=== PATIENT | male | born 1975 | race Caucasian/White ===

== ENCOUNTER 2017-06-24 21:14 | Inpatient (IN) | payer OTHER ==
[~2017-06-24] VITALS: Ht 172.7 cm; Wt 75.5 kg
--- NOTE | 2017-06-24 21:15 | NUR ---
NARCAN 2MG GIVEN IVP TO THE LEFT HAND G18 ORDERED [address] BEAN,
--- NOTE | 2017-06-24 21:15 | NUR ---
TO BED 1 A 41 YO MALE PT BIBA#102 PT PER EMS DID LIQUID ECTASY AND HEROINE PERIOR TO ARRIVAL, EMSGAVE 2MG OF NARCAN AND 4MG OF ZOFRAN PRACTICE REPRESENTATIVE. UPON ARRIVA, PATIENT IS UNRESPONSIVE, HYPOVENTILATING, ONGOING BVG MASK BY PARAMEDICS. PLACED ON CARDIAC AND VS MONITOR. MAINTAINED PATENT AIRWAY. DR BEAN AT BEDSIDE TO EVALUATE PATIENT. RT AT BEDSIDE WELL.
--- NOTE | 2017-06-24 21:36 | NUR ---
ETOMIDATE 20MG IVP AND SUCCS 100MG IVP GIVEN AT THIS TIME PRIOR TO INTUBATION. DR ROMI RICHARDSON AT BEDSIDE TO INTUBATE PATIENT.
--- NOTE | 2017-06-24 21:39 | NUR ---
SIZE 8 ETT PLACED WITH LIP AT [address] ROMI RICHARDSON, COLOR CHANGE NOTED ON THE CAPNO, WEI LUNG SOUNDS HEARD. PATIENT THEN CONNECTED TO [facility] VENT WITH SETTING FOLLOWS: AC 20, TV 500, FIO2 100%, PEEP OF 5. PATIENT IS SATTING AT 100% AT THIS TIME. WILL CONTINUE TO MONITOR.
[2017-06-24] MEDS ORDERED: PROPOFOL 100 ML IV ONE ×2 (21:48→23:40)
--- NOTE | 2017-06-24 21:55 | NUR ---
ICU 253
[2017-06-24] MEDS ORDERED: NALOXONE PREFILLED SYRINGE 2 MG/2 ML SYRINGE IV ONE (22:00)
[2017-06-24] MEDS ORDERED: IV NS 0.9% 1,000 ML BAG IV ONE (22:00)
--- NOTE | 2017-06-24 22:02 | NUR ---
PT ARRIVED POSSIBLE OD, WAS INTUBATED WITH Lei RICHARDSON AT BEDSIDE WITH 8.0 ETT @ 26LIPLINE BILATERAL BREATH SOUNDS PRESENT, GOOD COLOR CHANGE ON CAP, PT PLACED ON FOLLOWING SETTING ON [facility] VENT AC 12 500 100% ++5, VENT PLUGGED INTO RED OUTLET, VENT ALARMS ARE SET AND BVM AT BEDSIDE, SCANT AMOUNT OF SECRETIONS SUCTIONED PENDING XRAY FOR PLACEMENT AND ABG TO FOLLOW Addendum: 06/24/17 at 2208 by ALANA OSORIO RT Amended: Links added.
--- NOTE | 2017-06-24 22:07 | NUR ---
CXR AT BEDSIDE.
[2017-06-24 22:23] LABS: BASOPHILS # (AUTO) 0.1 /CMM (0.0-0.2); BASOPHILS % (AUTO) 0.6 % (0.0-2.0); EOSINOPHILS # (AUTO) 0.1 /CMM (0.0-0.7); EOSINOPHILS % (AUTO) 0.6 % (0.0-6.0); HEMATOCRIT 46 % (39-51); HEMOGLOBIN 15.5 g/dL (13.5-17.5); LYMPHOCYTES # (AUTO) 1.6 /CMM (0.8-4.8); LYMPHOCYTES % (AUTO) 15.7 % (20.0-44.0); MEAN CORPUSCULAR HEMOGLOBIN 28 PG (26.0-33.0); MEAN CORPUSCULAR HGB CONC 34 g/dl (31.0-36.0); MEAN CORPUSCULAR VOLUME 83 fL (80-96); MONOCYTES # (AUTO) 0.6 /CMM (0.1-1.30); MONOCYTES % (AUTO) 5.8 % (2.0-12.0); NEUTROPHILS # (AUTO) 7.9 /CMM (1.8-8.9); NEUTROPHILS % (AUTO) 77.3 % (43.0-81.0); PLATELET COUNT (AUTO) 263 /CMM (150-450); RED BLOOD CELL COUNT(AUTO) 5.57 MIL/uL (4.5-6.0); WHITE BLOOD COUNT (AUTO) 10.2 K/uL (4.3-11.0)
[2017-06-24 22:25] LABS: APPEARANCE,URINE SL CLOUDY (CLEAR); BILIRUBIN,URINE NEGATIVE (NEGATIVE); BLOOD, URINE TRACE-INTA Ery/uL (NEGATIVE); COLOR,URINE YELLOW (YELLOW); KETONES,URINE TRACE (NEGATIVE); LEUKOCYTE ESTERASE ,URINE NEGATIVE (NEGATIVE); NITRITE, URINE NEGATIVE (NEGATIVE); PH,URINE 7.5 (5.0-8.0); PROTEIN,URINE NEGATIVE (NEGATIVE); UGLUCOSE NEGATIVE (NEGATIVE)
--- NOTE | 2017-06-24 22:30 | NUR ---
OG TUBE INSERTED AT 75 CM ON THE LIP. IN PLACE VIA AUSCULTATION; GURGLING SOUND NOTED. SUCTIONED WITH YELLOWISH SECRETIONS.
[2017-06-24 22:34] LABS: BACTERIA,URINE None seen /HPF (None Seen); RBC,URINE 0-2 /HPF (0-2); SQUAMOUS EPITHELIAL CELL,UR Few /HPF (None Seen); WBC,URINE 0-2 /HPF (0-3)
--- NOTE | 2017-06-24 22:37 | NUR ---
Report given to Suzi MAGAÑA for ICU adission and ubaldo.
[2017-06-24 22:40] LABS: ALANINE AMINOTRANSFERASE 20 U/L (12-78); ALBUMIN 3.5 g/dL (3.4-5.0); ALCOHOL, BLOOD < 3 mg/dL (0-0); ALKALINE PHOSPHATASE 88 U/L (46-116); ASPARTATE AMINOTRANSFERASE 15 U/L (15-37); BILIRUBIN,DIRECT 0.1 mg/dL (0.0-0.2); BILIRUBIN,TOTAL 0.4 mg/dL (0.2-1.0); CARBON DIOXIDE 28 mmol/L (21-32); CHLORIDE 99 mmol/L (98-107); CREATININE 1.3 mg/dL (0.6-1.3); GLUCOSE 126 mg/dL (74-106); POTASSIUM 3.5 mmol/L (3.5-5.1); SODIUM SERUM 137 mmol/L (136-145); TOTAL PROTEIN, SERUM 7.3 g/dL (6.4-8.2); UREA NITROGEN, BLOOD 11 mg/dL (7-18)
[2017-06-24 22:41] LABS: ACETAMINOPHEN 0 ug/ml (10-30); SALICYLATE 0.6 mg/dL (2.8-20.0)
[2017-06-24] MEDS ORDERED: Z GUARD REMEDY 2 OZ OINT TP PRN (23:00)
[2017-06-24] MEDS ORDERED: ONDANSETRON HCL/PF 4 MG/2 ML VIAL IVP PRN (23:00)
[2017-06-24] MEDS ORDERED: IV NS 0.9% 1,000 ML IV SCH (23:00)
[2017-06-24] MEDS ORDERED: PROPOFOL 100 ML IV PRN (23:00)
--- NOTE | 2017-06-24 23:20 | NUR ---
Transferred patient to ICU via als protocol, no incident noted.
--- NOTE | 2017-06-24 23:25 | NUR ---
BLUEPRINT ENGINEER: ADMITTED PT ON S/P INTUBATION PERFORMED IN ER D/T RESPIRATORY FAILURE FROM DRUG OVERDOSE (POSITIVE FOR OPIATES AND CANNABINOIDS). TOLERATING VENT SETTINGS ORDERED. CURRENTLY INFUSING 2ND BAG OF NS BOLUS AND DIPRIVAN DRIP AT 35MCG/KG/MIN WT AGITATION. WILL TITRATE DIPRIVAN NEEDED TO ATTAIN PROPER SEDATION. SR ON SNORKELLING INSTRUCTOR. AFEBRILE. OGT VERIFIED PLACEMENT WT CHARGE NURSE LOS. F/C PATENT AND INTACT DRAINING YELLOW COLORED URINE TO GRAVITY. HOB ELEVATED AT 35 DEGREES. SAFETY PRECAUTION NOTED.
[2017-06-24 23:26] VITALS: BP 139/105
[2017-06-24 23:30] VITALS: BP 129/92
[2017-06-24 23:48] VITALS: BP 129/92
[2017-06-24 23:49] LABS: ABG BASE EXCESS 2.2 mmol/L; ABG OXYGEN SATURATION 99.1 % (92.0-98.5); ABG PCO2 37.6 mmHg (35.0-45.0); ABG PH 7.456 (7.350-7.450); ABG PO2 447.8 mmHg (75.0-100.0); AaDO2 227.6 mmHg; COHb 0.1 % (0.5-1.5); PEEP,BG 5 cm H2O; SITE, ABG Right Radial; VT, ABG 500 mL
[2017-06-25] VITALS (50 sets, daily range): BP systolic 91–142; BP diastolic 45–99
--- NOTE | 2017-06-25 | NUR ---
MINOR LEAGUE BASEBALL PLAYER: MOTHER AT BEDSIDE, UPDATED PT's CONDITION AND PROVIDED PT INFO FOR ADMISSION PROCESS.
[2017-06-25] MEDS ORDERED: NALOXONE PREFILLED SYRINGE 2 MG/2 ML SYRINGE ONE (00:05)
[2017-06-25] MEDS: PROPOFOL 100 ML IV PRN ×10 (00:12→22:32)
--- NOTE | 2017-06-25 00:30 | NUR ---
HANDKERCHIEF MAKER: OBTAINED TEL. ORDER FROM DR. ROMI RICHARDSON FOR BILAT. SOFT WRIST RESTRAINTS TO PREVENT SELF EXTUBATION. PT CONTINUES TO BE AGITATED M/B TRYING TO PULL TUBINGS DESPITE BEING ON DIPRIVAN DRIP. CIRCULATION WNL WT NO NEW SKIN BREAKDOWN. WILL CONTINUE TO MONITOR.
--- NOTE | 2017-06-25 01:45 | NUR ---
AUTO PARTS CLERK: CALLED AND NOTIFIED DR. RICHARDSON THAT PT. HAD EPISODE OF MODERATE AMT. OF ORANGE COLORED EMESIS AND AFTER 10 MINUTES HAD A 2-MINUTE EPISODE OF GRAND-MAL SEIZURE WITNESSED BY CHARGE AND PRIMARY NURSES. DNP WT NEW ORDERS. NOTED AND CARRIED OUT.
[2017-06-25] MEDS ORDERED: LORAZEPAM INJ 2 MG/ML VIAL ONE (01:50)
[2017-06-25] MEDS ORDERED: LORAZEPAM INJ 2 MG/ML VIAL IV ONE (02:00)
[2017-06-25] MEDS ORDERED: LORAZEPAM INJ 2 MG/ML VIAL IV PRN (02:00)
[2017-06-25] MEDS ORDERED: PROPOFOL 100 ML IV ONE ×2 (03:10→05:24)
[2017-06-25 05:03] LABS: MAGNESIUM 2.1 mg/dL (1.8-2.4); PHOSPHORUS 3.9 mg/dL (2.5-4.9)
--- NOTE | 2017-06-25 06:55 | NUR ---
DRYLAND FARMER: SEDATED ON DIPRIVAN AT 90MCG/KG/MIN. REMAINED NSR ON AUTOMATED CUTTING MACHINE OPERATOR WT HR IN THE 80s. TOLERATING VENT SETTINGS ORDERED WT NO ACUTE DISTRESS. NO EVIDENCE OF DISCOMFORT. NO MORE SEIZURE NOTED. SAFETY AND SEIZURE PRECAUTIONS NOTED AT ALL TIMES.
--- NOTE | 2017-06-25 07:00 | NUR ---
PT RECEIVED IN ICU ORALLY INTUBATED ON MECHANICAL VENT W/ SETTING PER MD. VENT IN RED OUTLET, AMBUBAG AT BEDSIDE, VENT ALARMS CHECKED AND AUDIBLE. PT SX'ED AND LAVAGED PRN TO MOD AMOUNTS OF THICK CHACKO/BLOOD TINGED SECRETIONS. BREATH SOUNDS EQUAL, CLEAR/DIMINISHED, ETT CLEAN AND SECURE. PLAN IS TO CONTINUE CARE W/ CURRENT MD ORDERS AND MONITOR FOR CHANGES. Addendum: 06/25/17 at 0809 by CARSON LOOMIS RT Amended: Links added.
--- NOTE | 2017-06-25 07:45 | NUR ---
AGRICULTURAL PRODUCTION ENGINEER; ASSESSMENT RECEIVED PT VENTED VIA ETT, SEE FLOW SHEET FOR VENT SETTINGS. PT SEDATED ON DIPRIVAN DRIP CURRENTLY AT 90MCG/KG/MIN, BUT AGITATED DIPRIVAN INCREASED TO 100MCG ORDERED. WEI WRIST RESTRAINS SECURED FOR PT SAFETY. OG TUBE IN PLACE POSITIVE FOR AUSCULTATION AND ASPIRATION, ON LOW INT. SUCTION. LEWIS CATH INTACT DRAINING TO GRAVITY CLEAR YELLOW URINE. WILL CONTINUE WITH POC.
--- NOTE | 2017-06-25 10:47 | NUR ---
HOTEL SERVER; PULMONARY/ SEDATION VACATION DR. MCINTOSH AT BEDSIDE UPDATE WAS GIVEN. DIPRIVAN NOW DOWN TO 50MCG/KG/MIN PT IS AWAKE LETHARGIC, WITH DELAYED IN FOLLOWING COMMANDS. PER DR. MCINTOSH TO INCREASE SEDATION AND WILL GIVEN ORDERS TO START WEANING FOR TOMORROW. PTS MOTHER AT BEDSIDE UPDATE GIVEN REGARDING POC
[2017-06-25] MEDS ORDERED: ETOMIDATE 2 MG/ML VIAL IV ONE (11:29)
[2017-06-25] MEDS ORDERED: SUCCINYLCHOLINE CHLORIDE 20 MG/ML VIAL IV ONE (11:29)
[2017-06-25] MEDS: IV NS 0.9% 1,000 ML IV PRN ×2 (12:16→20:18)
[2017-06-25] MEDS: ENOXAPARIN SODIUM 40 MG/0.4 ML DISP.SYRIN SQ SCH (13:33)
--- NOTE | 2017-06-25 20:00 | NUR ---
BLUEPRINT TRACER - NOTES - RECEIVED PT VENTED VIA ETT, SEE FLOW SHEET FOR VENT SETTINGS. PT SEDATED ON DIPRIVAN DRIP CURRENTLY AT 80MCG/KG/MIN. WEI WRIST RESTRAINTS SECURED FOR PT SAFETY. OG TUBE IN PLACE POSITIVE FOR AUSCULTATION AND ASPIRATION, ON LOW INT. SUCTION. LEWIS CATH INTACT DRAINING TO GRAVITY DARK GREEN URINE. WILL CONTINUE WITH POC.
--- NOTE | 2017-06-25 23:00 | NUR ---
PT AGITATED, TRYING TO GET UP AND PULL OUT ETT, PROPOFOL DRIP INCREASED TO 90 MCG/KG/MIN, WILL CONTINUE TO MONITOR
[2017-06-26] VITALS (37 sets, daily range): BP systolic 98–147; BP diastolic 39–99
[2017-06-26] MEDS: PROPOFOL 100 ML IV PRN ×3 (01:28→05:31)
--- NOTE | 2017-06-26 04:00 | NUR ---
FULL BED BATH GIVEN, ALL LINENS CHANGED, NO BM, PT STILL WITH DARK GREEN URINE IN F/C. VSS. WILL CONTINUE TO MONITOR
[2017-06-26] MEDS: IV NS 0.9% 1,000 ML IV PRN ×4 (04:27→20:22)
[2017-06-26 04:57] LABS: BASOPHILS % (AUTO) 0.3 % (0.0-2.0); EOSINOPHILS # (AUTO) 0.1 /CMM (0.0-0.7); EOSINOPHILS % (AUTO) 0.7 % (0.0-6.0); HEMATOCRIT 41 % (39-51); HEMOGLOBIN 13.7 g/dL (13.5-17.5); LYMPHOCYTES # (AUTO) 1.9 /CMM (0.8-4.8); LYMPHOCYTES % (AUTO) 13.3 % (20.0-44.0); MEAN CORPUSCULAR HEMOGLOBIN 28 PG (26.0-33.0); MEAN CORPUSCULAR HGB CONC 33 g/dl (31.0-36.0); MEAN CORPUSCULAR VOLUME 84 fL (80-96); MONOCYTES # (AUTO) 1.1 /CMM (0.1-1.30); MONOCYTES % (AUTO) 7.7 % (2.0-12.0); PLATELET COUNT (AUTO) 203 /CMM (150-450); RDW COEFFICIENT OF VARIATION 13.3 (11.5-15.0); RED BLOOD CELL COUNT(AUTO) 4.89 MIL/uL (4.5-6.0); WHITE BLOOD COUNT (AUTO) 14.1 K/uL (4.3-11.0)
[2017-06-26 05:16] LABS: CALCIUM, SERUM 8.3 mg/dL (8.5-10.1); CREATININE 1.1 mg/dL (0.6-1.3); MAGNESIUM 2.1 mg/dL (1.8-2.4); PHOSPHORUS 4.8 mg/dL (2.5-4.9); POTASSIUM 3.6 mmol/L (3.5-5.1)
--- NOTE | 2017-06-26 07:15 | NUR ---
ICU INITIAL NOTE RECEIVED REPORT FROM REE, PT WAS RECEIVED IN BED, SEDATED, SATING WELL, PT IS INTUBATED ETT 8.0, 26 @LIPLINE, AC 12 TV 500 FIO2 40% PEEP 5, NO S/S OF RESP. DISTRESS OR SOB NOTED AT THIS TIME, PT IS ON BEDSIDE MONITOR SHOWING SR @80'S, NO C/O OF CHEST PAIN OR DISCOMFORT NOTED AT THIS TIME, PT HAS R HAND #20G, L HAND #18G, RUNNING DIPRIVAN @ 90MCG/MIN, NS @125ML/HR, C/D/I/PATENT, FLUSHING WELL, NO S/S OF INFECTION/ INFILTRATION NOTED AT THIS TIME, PT IS CURRENTLY NPO AT THIS TIME, PT HAS OGT, ATTACHED TO LIS, DRAINING GREEN LIQUID, PT HAS F/C DRAINING GREEN TINT URINE TO GRAVITY, ALL SAFETY MEASURES IN PLACE AT ALL TIMES, CALL LIGHT WITHIN EASY REACH, WILL MONITOR PT CLOSELY FOR CHANGES
--- NOTE | 2017-06-26 07:15 | NUR ---
SEDATION VACATION DIPRIVAN IS BEING TITRATED DOWN PER PROTOCOL, PT IS ABLE TO FOLLOW COMMANDS, ABLE TO MOVE ALL EXTREMITIES, ABLE TO TRACK, PT IS CURRENTLY BEING WEANED AT THIS TIME, BILATERAL WRIST RESTRAINTS ARE STILL IN PLACE, MOTHER IS AT BEDSIDE, DR. MCINTOSH NOTIFIED OF ABG'S RESULTS AND PTS MENTAL STATE. DIPRIVAN WILL REMAIN OFF, PT IS CALM, O2 SATING 100%, WILL MONITOR CLOSELY
[2017-06-26 08:33] LABS: ABG BASE EXCESS -0.3 mmol/L; ABG OXYGEN SATURATION 98.2 % (92.0-98.5); ABG PCO2 35.7 mmHg (35.0-45.0); ABG PH 7.435 (7.350-7.450); ABG PO2 144.6 mmHg (75.0-100.0); AaDO2 99.5 mmHg; COHb 0.3 % (0.5-1.5); O2Hb 96.9 % (94.0-97.0); SITE, ABG Right Radial
[2017-06-26] MEDS ORDERED: DC PROPOFOL WHEN EXTUBATED XX PRN (09:00)
--- NOTE | 2017-06-26 09:00 | NUR ---
ICU NOTE DR. MCINTOSH MADE ROUNDS, OKAY TO EXTUBATE PT. ORDERS PUT IN AND ACK. DORY D/C
--- NOTE | 2017-06-26 09:14 | NUR ---
RT PER DR CATHERINE ORDER PATIENT WEANED AND EXTUBATED PARKER WELL. PATIENT AWAKE ALERT AND RESPONDING TO VERBAL COMMANDS
--- NOTE | 2017-06-26 09:15 | NUR ---
ICU NOTE PT WAS EXTUBATED, PT IS ABLE TO SWALLOW, PT IS ABLE TO TALK AND MAKE NEEDS KNOWN, RESTRAINTS WERE REMOVED, PT IS REQUESTING FOR F/C TO BE REMOVED, WILL NOTIFY MD
[2017-06-26] MEDS: ENOXAPARIN SODIUM 40 MG/0.4 ML DISP.SYRIN SQ SCH (09:24)
--- NOTE | 2017-06-26 10:57 | NUR ---
icu note per dr. burrell changed ativa 2mg q1h ivp to ativan 1mg po q6h prn
[2017-06-26] MEDS: LORAZEPAM 1 MG TABLET PO PRN (11:44)
--- NOTE | 2017-06-26 11:46 | NUR ---
icu note pt requested ativan for anxiety, 1mg given
--- NOTE | 2017-06-26 12:47 | NUR ---
icu note Alicia JEWELRY CUTTER at bedside, answered all questions and concerns, ordered to d/c helms catheter.
--- NOTE | 2017-06-26 15:35 | NUR ---
Social service consult requested by JERAMIE Jorge for drug rehab referrals. Pt. is a 41 year old male who was admitted to [facility] for a drug overdose. SW met with pt. bedside. Pt. is alert and oriented x 4. Pt. was pleasant and cooperative with SW during the assessment. Pt. states he lives with his family in [place]. Pt. does not have an advance health care directive at this time. Pt. states he is unemployed at this time. However, he is a freelance musician. Pt. is a drug user and his drug of choice is methamphetamines. Pt. does use marijuana, heroin, cocaine and GHB occasionally. Pt. consumes alcohol. Pt. became tearful during the assessment. SW offered pt. emotional support and active listening. Pt. states he often has constant racing thoughts about his future. Pt. suffers from Depression and Anxiety and would like to see a psychiatrist. SW informed RN Arnulfo to inform pt's GÓMEZ Garduno regarding placing a psych. consult. Pt. has been to drug treatment program in [place] four years ago. Pt. is currently not interested in going into a drug treatment program. SW encouraged pt. to go to treatment. Pt. is willing to accept drug treatment referrals only at this time. KAYLI gave pt. list of referrals to drug treatment programs in [place] and [facility]. Pt. denies suicidal/homicidal and visual/auditory hallucinations at this time. No other social service needs are requested at this time. SW is available, if needed.
--- NOTE | 2017-06-26 18:42 | NUR ---
ICU NOTE FAXED FACE SHEET TO [facility] FOR PSYCH CONSULT PT VERBALIZED HE DOES NOT WANT F/C REMOVED AT THIS TIME
--- NOTE | 2017-06-26 19:44 | NUR ---
LEWIS CATHETER REMOVED PER PATIENT REQUEST, URINE CLEAR YELLOW
--- NOTE | 2017-06-26 20:00 | NUR ---
DOG BOARDER - NOTES - PT RECEIVED IN BED, ALERT AND ORIENTED X4, PT WAS EXTUBATED TODAY 06/26 AT APPROX 0900. PT IS ON ROOM AIR TOLERATING WELL, LEWIS CATHETER D/C'ED, PT USING URINAL, URINE CLEAR YELLOW. PT HAS RIGHT HAND 20G IV, LEFT WRIST 20G IV, LEFT HAND 18G IV. PT ON NS @ 75 ML/HR. PT IS ON REGULAR DIET, SKIN INTACT, ONLY SCRATCH ON LEFT UPPER ARM. PT IS IN NSR BP WNL. WILL CONTINUE TO MONITOR
[2017-06-27] VITALS (8 sets, daily range): BP systolic 114–128; BP diastolic 55–76
[2017-06-27] MEDS: LORAZEPAM 1 MG TABLET PO PRN (00:49)
[2017-06-27 04:40] LABS: BASOPHILS % (AUTO) 0.1 % (0.0-2.0); EOSINOPHILS # (AUTO) 0.1 /CMM (0.0-0.7); EOSINOPHILS % (AUTO) 0.8 % (0.0-6.0); HEMATOCRIT 39 % (39-51); HEMOGLOBIN 13.1 g/dL (13.5-17.5); LYMPHOCYTES # (AUTO) 2.4 /CMM (0.8-4.8); LYMPHOCYTES % (AUTO) 16.8 % (20.0-44.0); MEAN CORPUSCULAR HEMOGLOBIN 29 PG (26.0-33.0); MEAN CORPUSCULAR HGB CONC 34 g/dl (31.0-36.0); MEAN CORPUSCULAR VOLUME 84 fL (80-96); MONOCYTES # (AUTO) 0.8 /CMM (0.1-1.30); MONOCYTES % (AUTO) 5.8 % (2.0-12.0); NEUTROPHILS # (AUTO) 10.7 /CMM (1.8-8.9); NEUTROPHILS % (AUTO) 76.5 % (43.0-81.0); PLATELET COUNT (AUTO) 208 /CMM (150-450); RDW COEFFICIENT OF VARIATION 13.2 (11.5-15.0); RED BLOOD CELL COUNT(AUTO) 4.61 MIL/uL (4.5-6.0)
[2017-06-27 04:56] LABS: CALCIUM, SERUM 8.2 mg/dL (8.5-10.1); MAGNESIUM 1.8 mg/dL (1.8-2.4); PHOSPHORUS 3.6 mg/dL (2.5-4.9); POTASSIUM 3.2 mmol/L (3.5-5.1)
--- NOTE | 2017-06-27 06:55 | NUR ---
PT TRANSFERRED TO [facility] STATUS, ON MONITOR WITH ANOTHER RN, ANDREA
--- NOTE | 2017-06-27 07:08 | NUR ---
CENTRAL OFFICE EQUIPMENT ENGINEER NOTES/CLOSING NOTES. Pt TRANSFERRED FROM ICU 253. RECEIVED REPORT FROM MAIL HANDLER ASSISTANT REE. FOUND Pt AWAKE, VERBAL, ABLE TO MAKE NEEDS KNOWN. NO S/S OF ACUTE DISTRESS OR SOB NOTED. NO SIGNS OF DISCOMFORT OR PAIN. SAFETY MEASURES IN PLACE. BED LOW, LOCKED, HOB ELEVATED, SIDE RAILS UP, CALL LIGHT AND BEDSIDE TABLE WITHIN REACH. WILL ENDORSE TO DAYSHIFT RN FOR Pt's ROSENDO.
--- NOTE | 2017-06-27 07:20 | NUR ---
RN NOTES PT IS IN BED, SLEEPING COMFORTABLY. PT ON RA, RESPIRATIONS ARE EVEN AND UNLABORED. IV ON R HAND, L HAND, R WRIST AND LEFT WRIST, ALL INTACT AND PATENT. L WRIST IV RUNNING NS @ 75ML/HR. SAFETY MEASURES ARE IN PLACE, CALL LIGHT IS IN REACH. WILL CONTINUE TO MONITOR.
[2017-06-27] MEDS: ENOXAPARIN SODIUM 40 MG/0.4 ML DISP.SYRIN SQ SCH (08:32)
[2017-06-27] MEDS: POTASSIUM CHLORIDE 20 MEQ TAB.PRT.SR PO SCH ×2 (11:27→12:30)
[2017-06-27] MEDS: IV NS 0.9% 1,000 ML IV PRN (11:27)
--- NOTE | 2017-06-27 14:19 | NUR ---
RN NOTES PT LEFT IN STABLE CONDITION TO HIS HOME ACCOMPANIED BY HIS MOTHER. DISCHARGE PAPERS AND BELONGINGS LIST WERE SIGNED. DISCHARGE EDUCATION WAS GIVEN AND PT WAS TOLD TO FOLLOW UP WITH PCP WITHIN 1-2 WEEKS OF DISCHARGE. PT STATED HE WOULD MAKE THE APPOINTMENT ON HIS OWN. IV'S WERE REMOVED AND ID BAND WAS REMOVED.
== END 2017-06-27 14:20 | disposition home or self-care (01) | DRG 816 ==
LOC: ER 21:14 → ICU 22:15 → MED 06-27 06:48
PROVIDERS: ADMIT Nurse Practitioner Acute Care; ATTEND Nurse Practitioner Acute Care
PROC: 5A1945Z Respiratory Ventilation, 24-96 Consecutive Hours (ICD-10-PCS; principal; 2017-06-24)
PROC: 0BH17EZ Insertion of Endotracheal Airway into Trachea, Via Natural or Artificial Opening (ICD-10-PCS; principal; 2017-06-24)
DX: T65.891A Toxic effect of other specified substances, accidental (unintentional), initial encounter (principal); J96.02 Acute respiratory failure with hypercapnia; G92 Toxic encephalopathy; R56.9 Unspecified convulsions; F41.9 Anxiety disorder, unspecified; F11.10 Opioid abuse, uncomplicated; Y92.009 Unspecified place in unspecified non-institutional (private) residence as the place of occurrence of the external cause; F15.11 Other stimulant abuse, in remission
CPT/HCPCS: 31720; 36415; 36600; 70450-TC; 71010-TC; 80048-TC; 80061-TC; 80076-TC; 80305; 81000-TC; 82803-TC; 82962-TC; 83735-TC; 84100-TC; 85025-TC; 87081-TC; 94003-TC; 94799-TC; 95819-TC; A4606; G0480; J0330; J1650; J2060; J2310; J3490; J7030; Z7610